=== PATIENT | female | born 1995 | race African-American/Black ===

== ENCOUNTER 2016-09-07 08:35 | Emergency (ER) ==
[2016-09-07 08:42] VITALS: BP 106/61
--- NOTE | 2016-09-07 10:05 | PROVIDER DOCUMENTATION ---
HPI-Musculoskeletal Pain/Inj - GENERAL Source: patient - HX OF PRESENT ILLNESS-MUSKULOSKELTAL Quality of Pain: reports: aching Severity in ED: moderate Onset/Duration: last night Timing: still present Modifying Factors: worse with: movement Any recent injury?: Yes Locality of Occurance: Home Similar Symptoms Previously?: No Recently seen or treated by another doctor?: No <Nelda Ayala - Last Filed: 09/07/16 10:01> <Shae Edmonds - Last Filed: 09/07/16 10:23> - GENERAL Chief Complaint: Extremity Injury Stated Complaint: RT ANKLE INJURY Time Seen by Provider: 09/07/16 09:06 - HX OF PRESENT ILLNESS-MUSKULOSKELTAL Nature of Presenting Problem: Reports to er with cc of left ankle pain secondary to twisting it going up steps last night. Report bent left foot backwards. Limited range of motion. ( Nelda Ayala) Review of Systems - Adult - REVIEW OF SYSTEMS - ADULT Constitutional: denies: chills, fever, fatique Eyes: reports: no symptoms reported Ears, Nose, Mouth & Throat: reports: no symptoms reported Cardiovascular: denies: chest pain, irregular heart rate, orthopnea Respiratory: reports: no symptoms reported Gastrointestinal: reports: no symptoms reported Genitourinary: reports: no symptoms reported Musculoskeletal: reports: see HPI. denies: frequent leg cramps, muscle aches, muscle weakness, neck pain Integumentary: reports: no symptoms reported Neurological: reports: no symptoms reported Psychiatric: reports: no symptoms reported Endocrine: reports: no symptoms reported Hematologic/Lymphatic: reports: no symptoms reported Allergic/Immunologic: reports: no symptoms reported All Other Systems: Reviewed and Negative <Nelda Ayala - Last Filed: 09/07/16 10:01> Past History - Adult - PAST MEDICAL HISTORY-ADULT Review of Records: reports: Nursing Assessment Review, Medications Reviewed Major Childhood Illnesses: reports: denies history Respiratory: reports: asthma - IMMUNIZATION STATUS Childhood Immunizations: See Nurse Assessment Flu Vaccine: See Nurse Assessment - SOCIAL HISTORY Smoking: cigarettes, less than 1 pack/day Provider spent 3-5 mins advising pt. on dangers of tobacco.: Discussed manners to quit use, and f/u contacts for add'l counseling. Substance Use: none/never <Nelda Ayala - Last Filed: 09/07/16 10:01> Physical Exam-Injury Related - Physical Exam-Injury Related Initial Vital Signs Reviewed: Yes General Appearance: appears well, alert, no apparent distress Eyes: PERRL/EOMI, pink conjunctivae Neck: non-tender, full range of motion, supple, normal inspection Respiratory: chest non-tender, lungs clear, normal breath sounds, no pleuratic chest pain, no respiratory distress, no accessory muscle use Cardiovascular: regular rate, rhythm Peripheral Pulses: dorsalis-pedis (R): 2+, dorsalis-pedis (L): 2+ Abdominal Exam: normal bowel sounds, non tender, soft, no organomegaly, no pulsatile mass Back Exam: normal inspection, no CVA tenderness, no vertebral tenderness Extremity: no pedal edema, no calf tenderness, normal capillary refill. negative: normal range of motion (limited range of motion to left ankle), pulse deficit, pedal edema, slow capillary refill, swelling DTR: ankle (R): 2+, ankle (L): 2+ Integumentary: normal color, warm/dry Psych/Mental Status: normal mood/affect, normal thought content, normal thought process, oriented x 3 - Glascow Coma Score Best Eye Response ([place]): (4) open spontaneously Best Verbal Response ([place]): (5) oriented Best Motor Response ([place]): (6) obeys commands [place] Total: 15 <Nelda Ayala - Last Filed: 09/07/16 10:01> Progress <Nelda Ayala - Last Filed: 09/07/16 10:01> - XRAY 1 XRAY: Right XRAY Study: Ankle Impression: See EMR Report (No fracture, per Dr. Adam) 2 XRAY: Right XRAY Study: Foot Impression: See EMR Report (No fracture, per Dr. Adam) <Shae Edmonds - Last Filed: 09/07/16 10:23> - PLAN OF CARE/RESULTS Progress/Plan/Lab Results: Orders Category Date Time Status ANKLE COMPLETE RIGHT [RAD] Stat Exams 09/07/16 08:42 Taken FOOT COMPLETE RIGHT [RAD] Stat Exams 09/07/16 09:47 Ordered Vital Signs - 24 hr 09/07/16 08:39 Temperature 97.8 F Pulse Rate 87 Respiratory 16 Rate Blood Pressure 106/61 O2 Sat by Pulse 100 Oximetry (Nelda Ayala) Discussed results, tx, and f/u with pt, including seeing a specialist for further management. (Shae Edmonds) Departure <Nelda Ayala - Last Filed: 09/07/16 10:01> - Departure Time of Disposition Order: 10:19 Certified Medical Emergency: Emergent <Shae Edmonds - Last Filed: 09/07/16 10:23> - Departure DIAGNOSIS: Foot sprain Qualifiers: Encounter type: initial encounter Laterality: right Qualified Code(s): S93.601A - Unspecified sprain of right foot, initial encounter Disposition: HOME 01 Condition: Stable Additional Instructions: Take medications as directed. Follow up with specialist if symptoms persist. RICE often. No weight bearing for 10 days, or until cleared by specialist. ED Follow Up Instructions: You have been treated by a care provider in the Emergency Department. These instructions are being provided to you so you can have an understanding of how to care for yourself upon discharge. Upon discharge from the Emergency Department, you are responsible for making arrangements for follow-up care by a physician of your choice. Take all prescribed medications as directed. Return to the Emergency Department immediately for any new or worsening symptoms. You may call the Physician Referral phone number at [phone] to obtain a list of Physicians who are taking new patients. Prescriptions: Diclofenac Sodium [Voltaren] 75 mg PO BID #20 tablet.dr Referrals: None,PCP [Primary Care Provider] - Niru Cassidy MD [STAFF PHYSICIAN] - Attestation - Scribe Verification/Attestation Scribe:: Nelda Ayala Acting as Scribe for:: Shae Edmonds Scribe documention review:: This chart was documented by a scribe and accurately reflects the service the provider performed and the decisions made by the provider. <Nelda Ayala - Last Filed: 09/07/16 10:01> Physician Attestation
--- NOTE | 2016-09-07 10:16 | Diag Imaging Result Document ---
PROCEDURE NAME: ANKLE COMPLETE RIGHT - 09/07/2016 RIGHT ANKLE, THREE VIEWS: FINDINGS: No fracture. No dislocation. IMPRESSION: No acute bony injury.
[2016-09-07] MEDS ORDERED: NORCO-7.5 PO ONE (10:21)
[2016-09-07] MEDS ORDERED: ZOFRAN ODT PO ONE (10:21)
--- NOTE | 2016-09-07 10:44 | Diag Imaging Result Document ---
PROCEDURE NAME: FOOT COMPLETE RIGHT - 09/07/2016 RIGHT FOOT THREE VIEWS: FINDINGS: No fracture. No dislocation. IMPRESSION: No acute bony injury.
== END 2016-09-07 10:50 | disposition home or self-care (01) ==
LOC: ED 08:35
DX: S93.601A Unspecified sprain of right foot, initial encounter (principal); M25.571 Pain in right ankle and joints of right foot; F17.210 Nicotine dependence, cigarettes, uncomplicated; Z71.6 Tobacco abuse counseling; X58.XXXA Exposure to other specified factors, initial encounter